=== PATIENT | female | born 1995 | race African-American/Black ===

== ENCOUNTER 2020-07-19 00:41 | Inpatient (IN) ==
[2020-07-19] MEDS ORDERED: MEPERIDINE 50 MG/1 ML VIAL IV PRN (00:52)
[2020-07-19] MEDS ORDERED: BUTORPHANOL 2 MG/ML VIAL IV PRN (00:52)
[2020-07-19] MEDS ORDERED: ONDANSETRON 4 MG/2 ML VIAL IV PRN (00:52)
[2020-07-19] MEDS ORDERED: OXYTOCIN/LR 20 UNIT/1,000 ML BAG IV SCH ×2 (01:00→06:00)
[2020-07-19 01:28] LABS: Basophils % 0.2 % (0.0-0.8); Eosinophils # 0.2 10*3/uL (0.0-0.87); Eosinophils % 2.3 % (0.00-10.9); Hematocrit 36.7 VOL% (35.7-47.0); Hemoglobin 11.5 GM/DL (12.0-16.0); Immature Granulocytes % 0.9 %; Immature Granulocytes Absolute 0.08 #; Lymphocytes # 2.4 10*3/uL (1.4-4.0); Lymphocytes % 26.9 % (21.3-54.2); Mean Corpuscular HGB Conc 31.3 GM/DL (32-36); Mean Corpuscular Volume 80.8 FL (87-102); Mean Platelet Volume 10.7 FL (9.6-12.0); Monocytes % 6.9 % (1.7-12.7); Neutrophils % 62.8 % (38.7-73.9); Platelet Count 281 T/CUMM (130-400); Red Blood Count 4.54 MC/CUMM (3.8-5.5); Red Cell Distribution Width 15.7 % (9.3-17.3); White Blood Count 8.7 T/CUMM (4-12)
[2020-07-19 01:33] LABS: Alanine Aminotransferase 11 U/L (13-56); Albumin 2.9 G/DL (3.4-5.0); Alkaline Phosphatase 196 U/L (45-117); Aspartate Amino Transferase 12 U/L (0-37); Bilirubin,Total < 0.39 MG/DL (0.2-1.0); Blood Urea Nitrogen 6 MG/DL (7-18); Calcium 8.7 MG/DL (8.5-10.1); Estimated Glom Filtration Rate 175 ML/MIN; Glucose 90 MG/DL (74-106); Total Protein 7.4 G/DL (6.4-8.3)
[2020-07-19] MEDS: LACTATED RINGERS 1,000 ML IV SCH ×2 (01:50→11:53)
[2020-07-19] MEDS ORDERED: miSOPROStoL 200 MCG TABLET ONE (12:49)
[2020-07-19] MEDS ORDERED: SODIUM CHLORIDE 0.9% 0 ML IV ONE (12:49)
[2020-07-19] MEDS ORDERED: TRANEXAMIC ACID 1,000 MG/10 ML VIAL ONE (12:49)
[2020-07-19] MEDS ORDERED: METHYLERGONOVINE 0.2 MG/1 ML AMP ONE (12:50)
[2020-07-19] MEDS ORDERED: CARBOPROST TROMETHAMINE 250 MCG/ML AMP IM ONE (12:50)
[2020-07-19] MEDS ORDERED: LACTATED RINGERS 250 ML IV PRN (14:33)
[2020-07-19] MEDS ORDERED: diphenhydrAMINE 50 MG/1 ML VIAL IV PRN ×2 (14:33)
[2020-07-19] MEDS ORDERED: NALOXONE 0.4 MG/ML VIAL IV PRN (14:33)
[2020-07-19] MEDS ORDERED: ONDANSETRON 4 MG/2 ML VIAL IV ONE (14:33)
[2020-07-19] MEDS ORDERED: PROMETHAZINE 25 MG/1 ML VIAL IM ONE (14:33)
[2020-07-19] MEDS ORDERED: ePHEDrine 50 MG/ML VIAL IV PRN (14:33)
[2020-07-19] MEDS ORDERED: CITRIC ACID/SODIUM CITRATE 30 ML UDCUP PO ONE (14:37)
[2020-07-19] MEDS ORDERED: FAMOTIDINE 20 MG/2 ML VIAL IV ONE ×2 (14:37→14:39)
[2020-07-19] MEDS ORDERED: fentaNYL 2 MCG/ROPIV 0.2% EPID 100 ML EPIDURAL SCH (15:00)
[2020-07-19] MEDS ORDERED: LACTATED RINGERS 1,000 ML IV SCH (15:00)
[2020-07-19 17:41] LABS: Cord Arterial Blood HCO3 18.7 MMOL/L
[2020-07-19 17:42] LABS: Cord Venous Blood HCO3 22.3 MMOL/L
[2020-07-19] MEDS ORDERED: WITCH HAZEL PADS 100/JAR TOP PRN (17:53)
[2020-07-19] MEDS ORDERED: HYDROCORTISONE 2.5% RECTAL CREAM 30 GM TUBE TOP PRN (17:53)
[2020-07-19] MEDS ORDERED: BISACODYL 10 MG SUPP RECTAL PRN (17:53)
[2020-07-19] MEDS ORDERED: BENZOCAINE 20%/MENTHOL 0.5% SPRAY 56 GM CAN TOP PRN (17:53)
[2020-07-19] MEDS ORDERED: oxyCODONE/ACETAMINOPHEN 5-325 MG TABLET PO PRN (17:53)
[2020-07-19] MEDS ORDERED: MEASLES/MUMPS/RUBELLA VACCINE 0.5 ML VIAL SUBCUT ONE (17:53)
[2020-07-19] MEDS ORDERED: OXYTOCIN/LR 20 UNIT/1,000 ML BAG IV ONE (17:53)
[2020-07-19] MEDS ORDERED: DIPH/TET/ACEL PERT BOOSTER VACCINE 0.5 ML VIAL IM ONE (17:53)
[2020-07-19] MEDS ORDERED: LANOLIN 50% CREAM 0.3 OZ TUBE TOP PRN (17:53)
[2020-07-19] MEDS ORDERED: RHO(D) IMMUNE GLOBULIN 300 MCG SYRINGE IM ONE (17:53)
[2020-07-19] MEDS ORDERED: ACETAMINOPHEN 325 MG TABLET PO PRN (17:53)
[2020-07-19] MEDS: oxyCODONE/ACETAMINOPHEN 5-325 MG TABLET PO PRN (18:02)
[2020-07-19] MEDS: IBUPROFEN 800 MG TABLET PO PRN (18:03)
[2020-07-19 18:34] LABS: Bilirubin,Urine Negative (Negative); Blood, Urine NEGATIVE (Negative); Glucose,Urine (UA) Negative (Negative); Ketones,Urine 100 mg/dL (Negative); Mucus,Urine Occasional /LPF (Occasional); Nitrite,Urine Negative (Negative); Protein,Urine Negative; Squamous Epithelial Cell,Urine Occasional /HPF (0-10); Urine Appearance Clear (Clear); Urine Color Yellow (Yellow); Urine Specific Gravity 1.005 (1.001-1.035)
[2020-07-19 18:36] LABS: Urine Urobilinogen 0.2 EU/DL (0.2-1.0)
[2020-07-19] MEDS: DOCUSATE SODIUM 100 MG CAPSULE PO SCH (21:12)
[2020-07-20] MEDS: IBUPROFEN 800 MG TABLET PO PRN ×3 (00:07→19:22)
[2020-07-20] MEDS: oxyCODONE/ACETAMINOPHEN 5-325 MG TABLET PO PRN ×2 (00:08→07:29)
[2020-07-20 05:05] LABS: Basophils % 0.3 % (0.0-0.8); Eosinophils # 0.1 10*3/uL (0.0-0.87); Eosinophils % 0.4 % (0.00-10.9); Hematocrit 32.3 VOL% (35.7-47.0); Hemoglobin 10.3 GM/DL (12.0-16.0); Immature Granulocytes % 0.6 %; Immature Granulocytes Absolute 0.07 #; Lymphocytes # 2.2 10*3/uL (1.4-4.0); Lymphocytes % 18.3 % (21.3-54.2); Mean Corpuscular HGB Conc 31.9 GM/DL (32-36); Mean Corpuscular Volume 79.6 FL (87-102); Mean Platelet Volume 10.9 FL (9.6-12.0); Monocytes % 8.8 % (1.7-12.7); Neutrophils % 71.6 % (38.7-73.9); Platelet Count 240 T/CUMM (130-400); Red Blood Count 4.06 MC/CUMM (3.8-5.5); Red Cell Distribution Width 15.5 % (9.3-17.3); White Blood Count 12.2 T/CUMM (4-12)
[2020-07-20] MEDS: DOCUSATE SODIUM 100 MG CAPSULE PO SCH ×2 (08:01→19:23)
[2020-07-20] MEDS ORDERED: ACETAMINOPHEN 500 MG TABLET ONE (14:34)
[2020-07-20] MEDS ORDERED: ACETAMINOPHEN 500 MG TABLET PO PRN (14:38)
[2020-07-21] MEDS: DOCUSATE SODIUM 100 MG CAPSULE PO SCH ×2 (02:55→08:49)
[2020-07-21 08:10] VITALS: BP 139/90
== END 2020-07-21 12:50 | disposition home or self-care (01) | DRG 807 ==
LOC: N.LDOUT 00:41 → N.LD 00:44 → N.OB 19:56
PROVIDERS: ADMIT Obstetrics & Gynecology; ATTEND Obstetrics & Gynecology